=== PATIENT | female | born 1935 | race Caucasian/White ===

== ENCOUNTER → 2016-09-20 | Outpatient (CLI) | payer MEDICARE, BC | END | disposition disaster alternative care site (69) | LOC: GAMB 07:21 | DX: R11.0 Nausea (principal); F32.9 Major depressive disorder, single episode, unspecified; I10 Essential (primary) hypertension; R19.7 Diarrhea, unspecified; R45.83 Excessive crying of child, adolescent or adult; Z95.0 Presence of cardiac pacemaker; Z79.82 Long term (current) use of aspirin; Z79.891 Long term (current) use of opiate analgesic; Z79.899 Other long term (current) drug therapy | CPT/HCPCS: A0425; A0427; J2405 ==

== ENCOUNTER → 2017-01-05 | Outpatient (CLI) | payer MEDICARE, BC | END | disposition disaster alternative care site (69) | LOC: GAMB 17:25 | DX: R55 Syncope and collapse (principal); F32.9 Major depressive disorder, single episode, unspecified; I10 Essential (primary) hypertension; R50.9 Fever, unspecified; Z95.0 Presence of cardiac pacemaker; Z79.82 Long term (current) use of aspirin; Z79.891 Long term (current) use of opiate analgesic; Z79.899 Other long term (current) drug therapy | CPT/HCPCS: A0422; A0425; A0427 ==